=== PATIENT | male | born 1980 | race Caucasian/White ===

== ENCOUNTER → 2016-11-12 | Outpatient (REF) | payer MEDICAID, OTHER, SELFPAY ==
[~2016-11-12] MED LIST: BACL10TA2 OR; CLON1TAB OR; METH10TA2 OR; OPAN10TA16 OR; PERC5TAB8 PO
[2016-11-12 16:09] LABS: BASO % 0.4 % (0.0-1.0); EOS # 0.2 K/mm3 (0.0-0.50); EOS % 2.1 % (0.0-3.0); LARGE UNSTAINED CELL # 0.2 K/mm3 (0.0-0.4); LARGE UNSTAINED CELL % 2.2 % (0.0-4.0); LYMPH # 3.2 K/mm3 (1.5-4.5); LYMPH % 39.2 % (24.0-44.0); MEAN CORPUSCULAR HEMOGLOBIN 27.6 pg (27.0-33.0); MEAN CORPUSCULAR HGB CONC 33.1 g/dl (32.0-36.5); MEAN CORPUSCULAR VOLUME 83.5 fl (80.0-96.0); MONO # 0.4 K/mm3 (0.0-0.8); NEUTROPHILS # 4.1 K/mm3 (1.8-7.7); NEUTROPHILS % 51.1 % (36.0-66.0); PLATELET COUNT, AUTOMATED 169 k/mm3 (150-450); RED CELL DISTRIBUTION WIDTH 12.8 % (11.5-14.5); WHITE BLOOD COUNT 8.1 K/mm3 (4.0-10.0)
[2016-11-12 16:26] LABS: ALBUMIN 4.4 GM/DL (3.2-5.2); ALBUMIN/GLOBULIN RATIO 1.22 (1.00-1.93); ALKALINE PHOSPHATASE 75 U/L (45-117); ALT/SGPT 73 U/L (12-78); ANION GAP 8 MEQ/L (8-16); AST/SGOT 35 U/L (15-37); BILIRUBIN,TOTAL 0.3 MG/DL (0.2-1.0); BLOOD UREA NITROGEN 20 MG/DL (7-18); CALCIUM LEVEL 9.1 MG/DL (8.5-10.1); CARBON DIOXIDE LEVEL 27 MEQ/L (21-32); CHLORIDE LEVEL 107 MEQ/L (98-107); CREATININE FOR GFR 0.92 MG/DL (0.70-1.30); GLOMERULAR FILTRATION RATE > 60.0 (>60); GLUCOSE, FASTING 90 MG/DL (70-105); POTASSIUM SERUM 4.5 MEQ/L (3.5-5.1); SODIUM LEVEL 142 MEQ/L (136-145)
[2016-11-19 08:06] LABS: ALT 58 IU/L (0-55); GGT 73 IU/L (0-65); HAPTOGLOBIN 113 mg/dL (34-200); NECROINFLAM SCORE 0.29 (0.00-0.17); NECROINFLAMM GRADE A0-A1 (.); TOTAL BILIRUBIN 0.2 mg/dL (0.0-1.2)
[2016-11-22 14:11] LABS: HEPATITIS C QUANTITATION 1988160 IU/mL (.); HEPATITIS C VIRUS GENOTYPE 1a (.)
== END ==
LOC: M SFHCPLAZ 14:07
PROVIDERS: ATTEND Internal Medicine Infectious Disease
DX: B18.2 Chronic viral hepatitis C (principal)

== ENCOUNTER 2016-11-29 14:00 | Outpatient (RCR) | payer OTHER, MEDICAID | END 2016-11-30 | LOC: M OUTALCOH 14:00 | PROVIDERS: ATTEND Psychiatry & Neurology Psychiatry | DX: F12.20 Cannabis dependence, uncomplicated (principal); F11.20 Opioid dependence, uncomplicated ==

== ENCOUNTER 2016-12-17 13:00 | Outpatient (RCR) | payer MEDICAID, SELFPAY | END 2016-12-28 | LOC: M OUTALCOH 13:00 | PROVIDERS: ATTEND Psychiatry & Neurology Psychiatry | DX: F11.20 Opioid dependence, uncomplicated (principal); F12.20 Cannabis dependence, uncomplicated ==

== ENCOUNTER → 2017-02-07 | Outpatient (REF) | payer OTHER ==
[2017-02-07 17:23] LABS: ALBUMIN 4.3 GM/DL (3.2-5.2); ALBUMIN/GLOBULIN RATIO 1.16 (1.00-1.93); BILIRUBIN,DIRECT 0.2 MG/DL (0.0-0.2); BILIRUBIN,TOTAL 0.5 MG/DL (0.2-1.0)
[2017-02-10 14:26] LABS: HEPATITIS C QUANTITATION HCV Not Detected IU/mL (.)
== END ==
LOC: M SFHCPLAZ 11:10
PROVIDERS: ATTEND Internal Medicine Infectious Disease
DX: B18.2 Chronic viral hepatitis C (principal)

== ENCOUNTER → 2017-08-01 | Outpatient (CLI) | payer OTHER ==
[2017-08-01 13:51] LABS: BASO % 0.2 % (0.0-1.0); EOS # 0.1 10^3/uL (0.0-0.50); IMMATURE GRANULOCYTE % 0.3 % (0-0); LYMPH # 3.1 10^3/uL (1.5-4.5); LYMPH % 32.1 % (24.0-44.0); MEAN CORPUSCULAR HEMOGLOBIN 27.3 pg (27.0-33.0); MEAN CORPUSCULAR HGB CONC 32.2 g/dl (32.0-36.5); MEAN CORPUSCULAR VOLUME 84.9 fl (80.0-96.0); MONO # 0.5 10^3/uL (0.0-0.8); MONO % 4.7 % (0.0-5.0); NEUTROPHILS % 61.7 % (36.0-66.0); PLATELET COUNT, AUTOMATED 176 10^3/uL (150-450); RED CELL DISTRIBUTION WIDTH 13.9 % (11.5-14.5); WHITE BLOOD COUNT 9.7 10^3/uL (4.0-10.0)
[2017-08-01 13:55] LABS: ADD MANUAL DIFFER NO; DIFF SLIDE NUMBER 228
[2017-08-01 14:36] LABS: ALBUMIN 4.3 GM/DL (3.2-5.2); ALBUMIN/GLOBULIN RATIO 1.16 (1.00-1.93); BILIRUBIN,DIRECT 0.1 MG/DL (0.0-0.2); BILIRUBIN,TOTAL 0.3 MG/DL (0.2-1.0)
[2017-08-03 14:13] LABS: HEPATITIS C QUANTITATION HCV Not Detected IU/mL (.)
== END ==
LOC: M LAB 13:21
PROVIDERS: ATTEND Internal Medicine Infectious Disease
DX: B18.2 Chronic viral hepatitis C (principal)

== ENCOUNTER 2019-03-06 19:04 | Emergency (ER) | payer OTHER ==
[~2019-03-06] VITALS: Ht 170.2 cm; Wt 81.8 kg
[2019-03-06] MEDS ORDERED: GABA-845 PO (19:08)
[2019-03-06] MEDS ORDERED: SUBO8MIS SL (19:08)
[2019-03-06] MEDS ORDERED: XANA1TAB2 PO (19:08)
[2019-03-06] MEDS ORDERED: ALPRAZolam 0.25 MG TAB PO ONE (21:15)
[2019-03-06 21:18] VITALS: BP 133/76
== END 2019-03-06 21:24 | disposition home or self-care (01) ==
LOC: M ED 19:04
DX: F41.9 Anxiety disorder, unspecified (principal); Z76.0 Encounter for issue of repeat prescription; F19.10 Other psychoactive substance abuse, uncomplicated; M54.9 Dorsalgia, unspecified; Z72.0 Tobacco use; F12.10 Cannabis abuse, uncomplicated; Z79.899 Other long term (current) drug therapy

== ENCOUNTER 2019-05-08 18:10 | Emergency (ER) | payer OTHER ==
[~2019-05-08] VITALS: Ht 170.2 cm; Wt 81.8 kg
[~2019-05-08 18:10] MED LIST changes: +GABA-845 PO; +SUBO8MIS SL; +XANA1TAB2 PO
[2019-05-08 18:11] VITALS: BP 176/101
[2019-05-08] MEDS ORDERED: IBUP80TA (18:17)
[2019-05-08] MEDS ORDERED: OMEP-218 (18:17)
== END 2019-05-08 21:44 | disposition left against medical advice (07) ==
LOC: M ED 21:41
DX: Z53.29 Procedure and treatment not carried out because of patient's decision for other reasons (principal)

== ENCOUNTER → 2020-05-05 | Outpatient (REF) | payer OTHER ==
[~2020-05-05] MED LIST changes: +IBUP80TA; +OMEP-218
[2020-05-05 11:22] LABS: BASO % 0.2 % (0.0-1.0); EOS # 0.2 10^3/uL (0.0-0.5); EOS % 2.8 % (0.0-3.0); HEMATOCRIT 40.4 % (42.0-52.0); HEMOGLOBIN 12.6 g/dl (13.5-17.5); LYMPH # 2.8 10^3/uL (1.5-5.0); LYMPH % 52.2 % (24.0-44.0); MEAN CORPUSCULAR HEMOGLOBIN 26.1 pg (27.0-33.0); MEAN CORPUSCULAR HGB CONC 31.2 g/dl (32.0-36.5); MEAN CORPUSCULAR VOLUME 83.8 fl (80.0-96.0); MONO # 0.3 10^3/uL (0.0-0.8); MONO % 6.3 % (0.0-5.0); NEUTROPHILS # 2.1 10^3/uL (1.5-8.5); NEUTROPHILS % 38.3 % (36.0-66.0); PLATELET COUNT, AUTOMATED 186 10^3/uL (150-450); RED BLOOD COUNT 4.82 10^6/uL (4.30-6.10); WHITE BLOOD COUNT 5.4 10^3/uL (4.0-10.0)
[2020-05-05 12:39] LABS: HIV 1&2 SCREEN CENTAUR NEGATIVE (NEGATIVE)
[2020-05-05 15:03] LABS: ALT/SGPT 16 U/L (12-78); BILIRUBIN,TOTAL 0.3 MG/DL (0.2-1.0); BLOOD UREA NITROGEN 13 MG/DL (7-18); CALCIUM LEVEL 9.1 MG/DL (8.5-10.1); CARBON DIOXIDE LEVEL 25 MEQ/L (21-32); CHLORIDE LEVEL 109 MEQ/L (98-107); CREATININE FOR GFR 0.85 MG/DL (0.70-1.30); GLOMERULAR FILTRATION RATE > 60.0 (>60); GLUCOSE, FASTING 101 MG/DL (70-100); POTASSIUM SERUM 4.4 MEQ/L (3.5-5.1); SODIUM LEVEL 141 MEQ/L (136-145); TOTAL PROTEIN 7.4 GM/DL (6.4-8.2)
[2020-05-09 12:09] LABS: HEPATITIS C QUANTITATION HCV Not Detected IU/mL (.)
== END ==
LOC: M SFHCPLAZ 09:29
PROVIDERS: ATTEND Internal Medicine Infectious Disease
DX: B18.2 Chronic viral hepatitis C (principal)

== ENCOUNTER 2021-12-23 19:53 | Emergency (ER) | payer OTHER ==
[~2021-12-23] VITALS: Ht 170.2 cm; Wt 94.3 kg
[~2021-12-23 19:53] MED LIST changes: +GABA-283 PO; -GABA-845 PO; +OMEP-173; -OMEP-218
[2021-12-23] MEDS ORDERED: CLON2TAB7 PO (20:08)
[2021-12-23] MEDS ORDERED: METH40TA2 PO (20:08)
[2021-12-23] MEDS ORDERED: QUET200T2 PO (20:08)
[2021-12-23] MEDS ORDERED: AMPH1CAP16 PO (20:08)
[2021-12-23] MEDS ORDERED: GABA-283 PO (20:08)
[2021-12-23] MEDS ORDERED: PARO20TA4 PO (20:08)
[2021-12-23 22:34] VITALS: BP 158/99
[2021-12-23 22:37] LABS: GC DNA AMPLIFICATION NEGATIVE (NEGATIVE)
[2021-12-24 00:41] LABS: BASO % 0.1 % (0.0-1.0); EOS # 0.1 10^3/uL (0.0-0.5); EOS % 0.7 % (0.0-3.0); HEMATOCRIT 44.8 % (42.0-52.0); HEMOGLOBIN 14.3 g/dl (13.5-17.5); LYMPH # 2.6 10^3/uL (1.5-5.0); MEAN CORPUSCULAR HEMOGLOBIN 26.4 pg (27.0-33.0); MEAN CORPUSCULAR HGB CONC 31.9 g/dl (32.0-36.5); MEAN CORPUSCULAR VOLUME 82.8 fl (80.0-96.0); MONO # 0.4 10^3/uL (0.0-0.8); MONO % 5.3 % (2.0-8.0); NEUTROPHILS # 4.1 10^3/uL (1.5-8.5); NEUTROPHILS % 57.6 % (36.0-66.0); PLATELET COUNT, AUTOMATED 212 10^3/uL (150-450); RED BLOOD COUNT 5.41 10^6/uL (4.30-6.10); WHITE BLOOD COUNT 7.2 10^3/uL (4.0-10.0)
[2021-12-24 01:15] LABS: BLOOD UREA NITROGEN 13 MG/DL (7-18); CALCIUM LEVEL 9.1 MG/DL (8.5-10.1); CARBON DIOXIDE LEVEL 25 MEQ/L (21-32); CHLORIDE LEVEL 105 MEQ/L (98-107); CREATININE FOR GFR 0.95 MG/DL (0.70-1.30); GLOMERULAR FILTRATION RATE > 60.0 (>60); GLUCOSE, FASTING 76 MG/DL (70-100); POTASSIUM SERUM 4.4 MEQ/L (3.5-5.1); SODIUM LEVEL 137 MEQ/L (136-145)
[2021-12-24 01:21] LABS: ERYTHROCYTE SEDIMENTATION RATE 5 mm/hr (0-15)
[2021-12-24 01:24] LABS: RSV AMPLIFICATION NEGATIVE (NEGATIVE)
== END 2021-12-24 02:16 | disposition home or self-care (01) ==
LOC: M ED 19:53
DX: N50.89 Other specified disorders of the male genital organs (principal); F90.9 Attention-deficit hyperactivity disorder, unspecified type; F41.9 Anxiety disorder, unspecified; F32.9 Major depressive disorder, single episode, unspecified; K21.9 Gastro-esophageal reflux disease without esophagitis; F17.200 Nicotine dependence, unspecified, uncomplicated; F19.10 Other psychoactive substance abuse, uncomplicated; Z79.899 Other long term (current) drug therapy

== ENCOUNTER → 2022-01-11 | Outpatient (CLI) | payer OTHER ==
[~2022-01-11] MED LIST changes: +AMPH1CAP16 PO; +CLON2TAB7 PO; -IBUP80TA; +IBUP80TA PO; +METH40TA2 PO; +PARO20TA4 PO; +QUET200T2 PO
[2022-01-11 17:44] LABS: HEMOGLOBIN 14.6 g/dl (13.5-17.5); MEAN CORPUSCULAR HEMOGLOBIN 26.5 pg (27.0-33.0); MEAN CORPUSCULAR HGB CONC 32.4 g/dl (32.0-36.5); MEAN CORPUSCULAR VOLUME 81.7 fl (80.0-96.0); PLATELET COUNT, AUTOMATED 214 10^3/uL (150-450); RED BLOOD COUNT 5.51 10^6/uL (4.30-6.10)
[2022-01-11 17:51] LABS: ALBUMIN 4.5 GM/DL (3.2-5.2); ALT/SGPT 30 U/L (12-78); BILIRUBIN,TOTAL 0.4 MG/DL (0.2-1.0); BLOOD UREA NITROGEN 10 MG/DL (7-18); CALCIUM LEVEL 9.6 MG/DL (8.5-10.1); CARBON DIOXIDE LEVEL 32 MEQ/L (21-32); CHLORIDE LEVEL 103 MEQ/L (98-107); CREATININE FOR GFR 1.04 MG/DL (0.70-1.30); GLOMERULAR FILTRATION RATE > 60.0 (>60); GLUCOSE, FASTING 99 MG/DL (70-100); POTASSIUM SERUM 3.9 MEQ/L (3.5-5.1); SODIUM LEVEL 139 MEQ/L (136-145); TOTAL PROTEIN 8.4 GM/DL (6.4-8.2)
[2022-01-11 18:11] LABS: HEPATITIS B SURFACE ANTIGEN NEGATIVE (NEGATIVE)
[2022-01-11 19:35] LABS: GC DNA AMPLIFICATION NEGATIVE (NEGATIVE)
[2022-01-11 19:51] LABS: HEPATITIS C VIRUS ABY INDEX > 11.0 INDEX (<0.8)
== END ==
LOC: M LAB 15:57
PROVIDERS: ATTEND Family Medicine
DX: F11.20 Opioid dependence, uncomplicated (principal)

== ENCOUNTER → 2022-01-11 | Outpatient (CLI) | payer OTHER ==
[2022-01-11 17:43] LABS: APPEARANCE, URINE CLEAR (CLEAR); BACTERIA, URINE AUTO NEGATIVE (NEGATIVE); BASO % 0.1 % (0.0-1.0); BILIRUBIN, URINE AUTO NEGATIVE (NEGATIVE); BLOOD, URINE BLOOD NEGATIVE (NEGATIVE); COLOR, URINE YELLOW (YELLOW); EOS % 0.3 % (0.0-3.0); GLUCOSE, URINE (UA) AUTO NEGATIVE (NEGATIVE); HEMATOCRIT 45.1 % (42.0-52.0); HEMOGLOBIN 14.7 g/dl (13.5-17.5); KETONE, URINE AUTO NEGATIVE (NEGATIVE); LEUKOCYTE ESTERASE, URINE AUTO TRACE (NEGATIVE); LYMPH # 1.7 10^3/uL (1.5-5.0); LYMPH % 25.3 % (24.0-44.0); MEAN CORPUSCULAR HEMOGLOBIN 26.8 pg (27.0-33.0); MEAN CORPUSCULAR HGB CONC 32.6 g/dl (32.0-36.5); MEAN CORPUSCULAR VOLUME 82.3 fl (80.0-96.0); MONO # 0.3 10^3/uL (0.0-0.8); MONO % 3.8 % (2.0-8.0); MUCUS, URINE SMALL (NEGATIVE); NEUTROPHILS # 4.8 10^3/uL (1.5-8.5); NEUTROPHILS % 70.2 % (36.0-66.0); NITRITE, URINE AUTO NEGATIVE (NEGATIVE); PLATELET COUNT, AUTOMATED 216 10^3/uL (150-450); PROTEIN, URINE AUTO 1+ mg/dL (NEGATIVE); RBC, URINE AUTO 0 /HPF (0-3); RED BLOOD COUNT 5.48 10^6/uL (4.30-6.10); SPECIFIC GRAVITY URINE AUTO 1.017 (1.002-1.035); SQUAMOUS EPITHELIAL CELL UR AU 0 /HPF (0-6); UROBILINOGEN, URINE AUTO 0.2 mg/dL (0.0-2.0); WBC, URINE AUTO 1 /HPF (0-3); WHITE BLOOD COUNT 6.8 10^3/uL (4.0-10.0)
[2022-01-11 17:52] LABS: ALBUMIN 4.3 GM/DL (3.2-5.2); ALT/SGPT 25 U/L (12-78); BILIRUBIN,TOTAL 0.4 MG/DL (0.2-1.0); BLOOD UREA NITROGEN 11 MG/DL (7-18); CALCIUM LEVEL 9.6 MG/DL (8.5-10.1); CARBON DIOXIDE LEVEL 32 MEQ/L (21-32); CHLORIDE LEVEL 103 MEQ/L (98-107); CREATININE FOR GFR 1.02 MG/DL (0.70-1.30); GLOMERULAR FILTRATION RATE > 60.0 (>60); GLUCOSE, FASTING 94 MG/DL (70-100); POTASSIUM SERUM 3.9 MEQ/L (3.5-5.1); SODIUM LEVEL 138 MEQ/L (136-145); TOTAL PROTEIN 8.3 GM/DL (6.4-8.2)
[2022-01-11 17:54] LABS: INR 1.04
[2022-01-11 17:55] LABS: PARTIAL THROMBOPLASTIN TIME 30.1 SECONDS (25.9-37.0)
== END ==
LOC: M RAD 15:50
PROVIDERS: ATTEND Physician Assistant
DX: Z01.818 Encounter for other preprocedural examination (principal); D40.11 Neoplasm of uncertain behavior of right testis

== ENCOUNTER → 2022-01-13 | Outpatient (CLI) | payer OTHER | LOC: M LABSMTC 11:38 | PROVIDERS: ATTEND Anesthesiology | DX: Z01.818 Encounter for other preprocedural examination (principal); Z11.52 Encounter for screening for COVID-19 ==

== ENCOUNTER 2022-01-15 07:55 | Day surgery (SDC) | payer OTHER ==
[~2022-01-15] VITALS: Ht 170.2 cm; Wt 89.3 kg
[~2022-01-15 07:55] MED LIST changes: +LR 1,000 ML IV ONE; +ceFAZolin SOD 2 GM in IV 1 EA IV ONE
[2022-01-15] MEDS ORDERED: fentaNYL 100 MCG/2 ML INJECTION As Ordered ONE (10:19)
[2022-01-15] MEDS ORDERED: MIDAZOLAM INJ 2MG/2ML VIAL (J2250 PER 1MG) As Ordered ONE (10:19)
[2022-01-15] MEDS ORDERED: BUPIVACAINE HCL 0.25% 30ML VIAL As Ordered ONE (10:21)
[2022-01-15] MEDS ORDERED: propofoL 200 MG/20 ML VIAL As Ordered ONE ×2 (10:21→11:06)
[2022-01-15] MEDS ORDERED: LIDOCAINE 1% SDV 30ML VIAL As Ordered ONE (10:21)
[2022-01-15] MEDS ORDERED: LIDOCAINE 2% 100MG/5ML SDV (FOR ANES.) As Ordered ONE (10:22)
[2022-01-15] MEDS ORDERED: KETOROLAC 30 MG/ML 1ML VIAL IV ONE (10:50)
[2022-01-15] MEDS ORDERED: ACETAMINOPHEN 1000MG 100ML IV BTL (OFIRMEV) (J0131 PER 10MG) As Ordered ONE (11:06)
[2022-01-15] MEDS ORDERED: ONDANSETRON 4MG/2ML VIAL As Ordered ONE ×2 (11:07→13:01)
[2022-01-15] MEDS ORDERED: dexameTHASONE 4 MG/ML 1ML VIAL (J1100 PER 1MG) As Ordered ONE ×2 (11:07→11:23)
[2022-01-15] MEDS ORDERED: KETAMINE HCL 200 MG/20 ML VIAL As Ordered ONE (11:43)
[2022-01-15] MEDS ORDERED: MEPERIDINE INJ 25 MG/ML VIAL (J2175) As Ordered ONE (13:01)
[2022-01-15] MEDS ORDERED: LR 1,000 ML IV SCH (13:10)
[2022-01-15] MEDS ORDERED: KETOROLAC 30 MG/ML 1ML VIAL IV PRN (13:10)
[2022-01-15] MEDS ORDERED: ACETAMINOPHEN TAB 650MG DOSE (2X325MG) PO PRN (13:10)
[2022-01-15] MEDS ORDERED: ONDANSETRON 4MG/2ML VIAL IV PRN (13:10)
[2022-01-15] MEDS: MEPERIDINE INJ 25 MG/ML VIAL (J2175) IV PRN ×2 (13:11→13:25)
[2022-01-15] MEDS: oxyCODONE 5MG TAB PO PRN ×2 (13:42→14:08)
[2022-01-15 14:56] VITALS: BP 142/87
== END 2022-01-15 15:09 | disposition home or self-care (01) ==
LOC: M SDC 07:55
PROVIDERS: ATTEND Urology
DX: C62.91 Malignant neoplasm of right testis, unspecified whether descended or undescended (principal); F12.10 Cannabis abuse, uncomplicated; Z79.891 Long term (current) use of opiate analgesic; Z79.899 Other long term (current) drug therapy; G43.909 Migraine, unspecified, not intractable, without status migrainosus; I10 Essential (primary) hypertension; F11.11 Opioid abuse, in remission; B18.2 Chronic viral hepatitis C
CPT/HCPCS: 54530; 88309; J0131; J0690; J1100; J1885; J2175; J2250; J2405; J3010

== ENCOUNTER → 2022-02-17 | Outpatient (CLI) | payer OTHER ==
[~2022-02-17] MED LIST changes: +ISOVUE-370 76% 100ML VIAL As Ordered ONE; -LR 1,000 ML IV ONE; -ceFAZolin SOD 2 GM in IV 1 EA IV ONE
== END ==
LOC: M RAD 14:43
PROVIDERS: ATTEND Physician Assistant
DX: C62.91 Malignant neoplasm of right testis, unspecified whether descended or undescended (principal); R93.1 Abnormal findings on diagnostic imaging of heart and coronary circulation
CPT/HCPCS: 71260; 74177; Q9967

== ENCOUNTER → 2022-02-24 | Outpatient (CLI) | payer OTHER ==
[~2022-02-24] MED LIST changes: -ISOVUE-370 76% 100ML VIAL As Ordered ONE
== END ==
LOC: M LAB 11:02
PROVIDERS: ATTEND Physician Assistant
DX: C62.91 Malignant neoplasm of right testis, unspecified whether descended or undescended (principal)

== ENCOUNTER 2022-07-01 14:23 | Emergency (ER) | payer OTHER ==
[~2022-07-01] VITALS: Ht 170.2 cm; Wt 98.8 kg
[2022-07-01 14:24] VITALS: BP 151/100
[2022-07-01] MEDS ORDERED: TRAZ-252 PO (18:58)
[2022-07-01] MEDS ORDERED: OMEP40CA5 PO (18:58)
[2022-07-01] MEDS ORDERED: ALPR1TAB3 PO (18:58)
== END 2022-07-01 15:40 | disposition left against medical advice (07) ==
LOC: M ED 14:23
DX: Z53.21 Procedure and treatment not carried out due to patient leaving prior to being seen by health care provider (principal)

== ENCOUNTER 2022-07-01 18:37 | Emergency (ER) | payer OTHER ==
[~2022-07-01] VITALS: Ht 170.2 cm; Wt 98.8 kg
[2022-07-01 18:37] VITALS: BP 129/76
[2022-07-01] MEDS ORDERED: ALPR1TAB3 PO (18:58)
[2022-07-01] MEDS ORDERED: TRAZ-252 PO (18:58)
[2022-07-01] MEDS ORDERED: OMEP40CA5 PO (18:58)
[2022-07-01] MEDS ORDERED: ALPRAZolam 0.5 MG TAB PO ONE (20:35)
== END 2022-07-01 21:20 | disposition home or self-care (01) ==
LOC: M ED 18:37
DX: Z76.0 Encounter for issue of repeat prescription (principal); I10 Essential (primary) hypertension; F19.11 Other psychoactive substance abuse, in remission; Z87.891 Personal history of nicotine dependence; Z85.47 Personal history of malignant neoplasm of testis; Z79.899 Other long term (current) drug therapy

== ENCOUNTER 2023-03-01 03:46 | Emergency (ER) | payer OTHER ==
[~2023-03-01] VITALS: Ht 170.2 cm; Wt 101.4 kg
[~2023-03-01 03:46] MED LIST changes: +ALPR1TAB3 PO; +OMEP40CA5 PO; +TRAZ-252 PO
[2023-03-01] MEDS ORDERED: GABA600T4 (07:20)
[2023-03-01] MEDS ORDERED: BUPR1FIL (07:20)
[2023-03-01] MEDS ORDERED: XANA1TAB2 PO (08:12)
[2023-03-01 08:27] VITALS: BP 159/110
== END 2023-03-01 08:32 | disposition home or self-care (01) ==
LOC: M ED 03:46
DX: Z76.0 Encounter for issue of repeat prescription (principal); G89.29 Other chronic pain; F41.9 Anxiety disorder, unspecified; F90.9 Attention-deficit hyperactivity disorder, unspecified type; Z79.899 Other long term (current) drug therapy

== ENCOUNTER → 2023-12-01 | Outpatient (CLI) | payer OTHER ==
[~2023-12-01] MED LIST changes: +BUPR1FIL; -GABA-283 PO; +GABA-284 PO; +GABA600T4
== END ==
LOC: M PLAIMG 09:19
PROVIDERS: ATTEND Urology
DX: C62.90 Malignant neoplasm of unspecified testis, unspecified whether descended or undescended (principal); Z53.9 Procedure and treatment not carried out, unspecified reason

== ENCOUNTER → 2023-12-09 | Outpatient (CLI) | payer OTHER ==
[~2023-12-09] MED LIST changes: +ISOVUE-370 76% 100ML VIAL As Ordered ONE
== END ==
LOC: M RAD 15:44
PROVIDERS: ATTEND Urology
DX: C62.90 Malignant neoplasm of unspecified testis, unspecified whether descended or undescended (principal); R93.5 Abnormal findings on diagnostic imaging of other abdominal regions, including retroperitoneum
CPT/HCPCS: 74177; Q9967

== ENCOUNTER 2025-08-27 17:37 | Emergency (ER) | payer OTHER ==
[~2025-08-27] VITALS: Ht 170.2 cm; Wt 107.3 kg
[~2025-08-27 17:37] MED LIST changes: +GABA-1490; -GABA600T4; -ISOVUE-370 76% 100ML VIAL As Ordered ONE
[2025-08-27] MEDS ORDERED: DEXTROAMP-AMPHETAMIN (17:51)
[2025-08-27] MEDS ORDERED: SUBO8MIS (17:51)
[2025-08-27] MEDS ORDERED: XANA1TAB2 PO (19:25)
[2025-08-27] MEDS ORDERED: ADDE30CA3 PO (19:25)
[2025-08-27 19:30] VITALS: BP 112/83; TEMP 97.2; O2SAT 97
== END 2025-08-27 19:31 | disposition home or self-care (01) ==
LOC: M ED 17:37
DX: Z76.0 Encounter for issue of repeat prescription (principal); F41.1 Generalized anxiety disorder; F90.9 Attention-deficit hyperactivity disorder, unspecified type; F17.200 Nicotine dependence, unspecified, uncomplicated; F12.10 Cannabis abuse, uncomplicated; Z79.899 Other long term (current) drug therapy